=== PATIENT | female | born 1985 | race Caucasian/White ===

== ENCOUNTER → 2016-09-28 | Outpatient (CLI) | payer BC, SELFPAY | END | disposition disaster alternative care site (69) | LOC: GRAD 13:00 | DX: R10.2 Pelvic and perineal pain (principal); R10.9 Unspecified abdominal pain ==

== ENCOUNTER 2016-11-08 06:00 | Emergency (ER) | payer BC, SELFPAY ==
--- NOTE | ~2016-11-08 | ER ---
PATIENT'S NAME: CHRISTOPHER HANCOCK [facility] AGE: 31 Y [address] ROOM: [place] [address] LOCATION: [facility] ADMIT DATE: 11/08/2016 ER/Outpatient Report DISCHARGE DATE: FAMILY PHYSICIAN: Gloria Tavarez MD ATTENDING PHYSICIAN: Srinath Le TIME OF ARRIVAL: 0600 hours. TIME OF EVALUATION: 0610 hours. CHIEF COMPLAINT: Fever. HISTORY OF PRESENT ILLNESS: The patient is a 31-year-old female, who presents to the emergency department today with a chief complaint of fever, nasal congestion, drainage that started about 1 day prior to arrival. She woke up with some shortness of breath this morning. Does report some chest pain. It is in her chest, it is sharp, it is worse with deep inspiration. Reports a nonproductive cough. She does have some nausea. No vomiting. The patient is currently 10 weeks . She had a fever of 102 at home and chills; with one miscarriage. PAST MEDICAL HISTORY: None. PAST SURGICAL HISTORY: Right shoulder, elbow, cholecystectomy. SOCIAL HISTORY: The patient denies any tobacco, alcohol, or illicit drug use. ALLERGIES: PENICILLIN AND AZITHROMYCIN. MEDICATIONS: vitamins. PRIMARY CARE DOCTOR: None. RENEWABLE ENERGY CONSULTANT: As stated. PATIENT'S NAME: CHRISTOPHER [facility]ANC[facility] AGE: 31 Y [address] ROOM: [place] [address] LOCATION: [facility] ADMIT DATE: 11/08/2016 ER/Outpatient Report DISCHARGE DATE: FAMILY PHYSICIAN: Gloria Tavarez MD ATTENDING PHYSICIAN: Srinath Le REVIEW OF SYSTEMS: All systems are reviewed by myself and are negative with the exception of those discussed in HPI and past medical history. PHYSICAL EXAMINATION: VITAL SIGNS: Weight 104 kg, blood pressure 142/71, pulse 85, respiratory rate 20, temperature 98.8, oxygen saturation 100% on room air. GENERAL: The patient is a 31-year-old female, who appears stated age, in no acute distress. HEENT: Head: Normocephalic, atraumatic. Pupils are equal, round, and reactive to light. Mucous membranes are moist. NECK: Supple. There is no nuchal rigidity. CARDIOVASCULAR: Regular rate and rhythm. No murmurs, rubs, or gallops. LUNGS: Clear to auscultation bilaterally. No wheezes, rales, or rhonchi. ABDOMEN: Soft, nontender, nondistended. No rebound, rigidity, or guarding. MUSCULOSKELETAL: The patient moves all 4 extremities. SKIN: Warm and dry. There are no rashes or lesions noted. LABORATORY DATA AND X-RAYS: EKG is obtained, is interpreted by myself at 0615 shows sinus rhythm with a rate of 70, normal axis, normal interval. No ST elevation, ST depression, or T-wave inversions. Chest x-ray shows interstitial opacities. CBC: White blood cell count 12.6, otherwise normal. CMP is normal. D-dimer is less than 0.19. LFTs are normal. IMPRESSION: 1. Community-acquired pneumonia. 2. Intrauterine . 3. Initial visit. EMERGENCY DEPARTMENT COURSE: The patient was brought back to the examination room. Seen and evaluated by myself. IV is established. The patient is given a liter of normal saline, 4 mg of Zofran with a repeat dose, 1 g of Tylenol as well as 2 g of Rocephin IV. Bedside ultrasound is performed by myself. It does reveal an intrauterine with a heart rate of 167, gestational sac, and crown-rump length measures 9 weeks, 0 days. The patient is given DuoNeb breathing treatment. The patient does feel improved at this time. I have discussed results of the workup with the patient. I have written a prescription for Omnicef and albuterol for home. I have discussed ikofho-yw-mgrb instructions including worsening symptoms or any other concerns to return to the emergency department as soon as possible. The patient is agreeable without further PATIENT'S NAME: CHRISTOPHER [facility]ANCOCK [facility] AGE: 31 Y [address] ROOM: [place] [address] LOCATION: [facility] ADMIT DATE: 11/08/2016 ER/Outpatient Report DISCHARGE DATE: FAMILY PHYSICIAN: Gloria Tavarez MD ATTENDING PHYSICIAN: Srinath Le questions at this time. DISPOSITION: The patient is discharged home in good condition. DO EDNA CRUZ/modl /[id number] d: 11/08/16 0826 t: 11/09/16 1104, OUTPATIENT REPORT
[2016-11-08 06:35] LABS: BASOPHIL # 0.1 K/uL (0.0-0.2); BASOPHIL % 0.5 %; EOSINOPHIL # 0.1 K/uL (0.0-0.5); EOSINOPHIL % 1.1 %; HEMATOCRIT 37.3 % (33.0-46.0); HEMOGLOBIN 12.8 g/dL (11.0-15.0); IMMATURE GRANULOCYTE # 0.1 K/uL (0.0-0.3); IMMATURE GRANULOCYTE % 0.8 %; LYMPHOCYTE # 1.7 K/uL (0.8-4.0); LYMPHOCYTE % 13.7 %; MCHC 34.3 gm/dL (32.0-36.5); MCV 90.3 fl (83.0-98.0); MONOCYTE # 0.8 K/uL (0.0-1.0); MONOCYTE % 6.1 %; MPV 9.9 fl (9.4-12.4); NEUTROPHIL # (ANC) 9.8 K/uL (1.8-7.8); NEUTROPHIL % 77.8 %; NRBC % 0 /100WBC (0-0.00); PLATELET COUNT 245 K/uL (150-450); RBC 4.13 M/uL (3.50-5.50); RDW-CV 12.1 % (11.9-14.6); WBC 12.6 K/uL (4.0-11.0)
[2016-11-08 06:53] LABS: ALBUMIN 3.3 gm/dL (3.5-5.0); ALK PHOS 86 IU/L (33-138); ALT 29 IU/L (12-78); ANION GAP 14.7 (10.0-19.0); AST 18 IU/L (10-40); BLOOD UREA NITROGEN 6 mg/dL (6-24); CALCIUM 8.6 mg/dL (8.5-10.5); CHLORIDE 106 mMol/L (96-110); CO2 23 mMol/L (22-32); CREATININE 0.6 mg/dL (0.5-1.1); ESTIMATED GFR (MDRD EQUATION) > 60; POTASSIUM 3.7 mMol/L (3.7-5.1); SODIUM 140 mMol/L (135-145); TOTAL BILIRUBIN 0.5 mg/dL (0.0-1.5); TOTAL PROTEIN 6.8 g/dL (6.0-8.4)
== END 2016-11-08 08:01 | disposition disaster alternative care site (69) ==
LOC: GMED 06:00
PROVIDERS: Emergency Medicine
DX: O99.511 Diseases of the respiratory system complicating pregnancy, first trimester (principal); J18.9 Pneumonia, unspecified organism; Z3A.10 10 weeks gestation of pregnancy; Z88.0 Allergy status to penicillin; Z88.1 Allergy status to other antibiotic agents; Z98.890 Other specified postprocedural states; Z90.49 Acquired absence of other specified parts of digestive tract
CPT/HCPCS: J0696; J2405; J7030

== ENCOUNTER 2016-12-09 13:52 | Emergency (ER) | payer BC, SELFPAY ==
--- NOTE | ~2016-12-09 | ER ---
PATIENT'S NAME: CHRISTOPHER HANCOCK [facility] AGE: 31 Y [address] ROOM: [place] [address] LOCATION: [facility] ADMIT DATE: 12/09/2016 ER/Outpatient Report DISCHARGE DATE: 12/09/2016 FAMILY PHYSICIAN: PHYSICIAN, NO ATTENDING PHYSICIAN: Paola Le Time of Arrival: 1355 hours. Time of Evaluation: 1355 hours. CHIEF COMPLAINT: Vaginal bleeding. HISTORY OF PRESENT ILLNESS: The patient states approximately 15 minutes prior to arrival, she was lying down at home, felt a pop, and went to the bathroom, had sudden gush of bright red blood from the vaginal area. She has had cramping in the lower abdominal region. She is approximately 13-1/2 half weeks' . She has not had any clots. She has not passed any tissue. She states that she has been having problems with migraine headaches since she became . Headache today was quite extensive. She was trying to type at work, headache got worse, and so she went home to lay down and rest. States the headache is from the top of her head to the back. It is similar to the migraine headaches that she has had in the past. It is just not improving with medications. She states she sees Dr. Tavarez for [facility] care in [place]. Dr. Tavarez did order some Fioricet for her, which she did take last night, but it did not really help with the headache. She states her last menstrual period was on 09/04/2016. She has seen Dr. Tavarez and has an estimated due date of 06/11/2017. She is a 6; para 3; AB 2, one was an elected and one was a miscarriage. ALLERGIES: Z-QUAN, PENICILLIN. MEDICATIONS: On her chart and reviewed by me. PAST MEDICAL HISTORY: Migraine headaches, recurrent UTIs, pneumonia one month ago. PAST SURGICAL HISTORY: Cholecystectomy, shoulder surgery, elbow surgery. SOCIAL HISTORY: She denies use of tobacco, drugs, or alcohol. PATIENT'S NAME: CHRISTOPHER [facility]ANCOCK [facility] AGE: 31 Y [address] ROOM: [place] [address] LOCATION: ED ADMIT DATE: 12/09/2016 ER/Outpatient Report DISCHARGE DATE: 12/09/2016 FAMILY PHYSICIAN: PHYSICIAN, NO ATTENDING PHYSICIAN: Paola Le REVIEW OF SYSTEMS: All negative other than those mentioned in the HPI. PHYSICAL EXAMINATION: VITAL SIGNS: She weighs 102.2 kg, blood pressure is 143/86, pulse of 116, respirations 20, temperature of 99.1 tympanic, O2 saturation is 97% on room air. GENERAL: She is awake, alert, and oriented x4. SKIN: [place], warm, and dry. RESPIRATIONS: Even and nonlabored. Lung sounds are clear throughout. HEART: Regular rate and rhythm. EMERGENCY DEPARTMENT COURSE: Pelvic exam was completed. There is a moderate amount of blood in the vaginal vault. It was wicked away. Good visualization of the cervix was obtained and appears closed. No tissue noted at the cervical os. Does have continued trickling of bleeding at that site. The patient tolerated the procedure well. IV was started. Fluids of normal saline were run at a wide-open rate. The patient was given Compazine 10 mg IV and Benadryl 50 mg IV. LABORATORY DATA AND X-RAYS: Lab work was completed. CBC shows a white count 11.9, hemoglobin is 12.6 with hematocrit of 35.6. Chem panel is within normal limits. Her serum HCG is 27,098. Cath UA was obtained during the pelvic exam. It does show 5-10 white blood cells with few bacteria. Ultrasound was completed, reports the patient is 13 weeks and 4 days. Cervix does appear closed, heart rate is 140, placenta is okay. The patient states her blood type is O positive, and it is documented in her old charts. IMPRESSION: Threatened miscarriage. PLAN: Home, rest. Talked to her about doing complete bed rest. No lifting. Only getting up to go to the bathroom. I did discuss with her in detail about nothing in the vaginal vault. No use of tampons. No sexual intercourse. She is to continue to drink plenty of fluids. She states she has an appointment to see Dr. Tavarez tomorrow at 2:30. I encouraged her to call the office and let him know that she was here today and definitely needs to keep that appointment if not be seen sooner. She and her fiancee verbalized understanding. KAYLEY AVILA APRN FOR [facility] [employer] PATIENT'S NAME: CHRISTOPHER HANCOCK [facility] AGE: 31 Y [address] ROOM: [place] [address] LOCATION: ED ADMIT DATE: 12/09/2016 ER/Outpatient Report DISCHARGE DATE: 12/09/2016 FAMILY PHYSICIAN: MORA WAGNER ATTENDING PHYSICIAN: Paola Le/mingo /[id number] d: 12/10/16 0137 t: 12/14/16 1239, OUTPATIENT REPORT
[2016-12-09 14:26] LABS: BASOPHIL % 0.3 %; EOSINOPHIL # 0.1 K/uL (0.0-0.5); EOSINOPHIL % 0.6 %; HEMATOCRIT 35.6 % (33.0-46.0); HEMOGLOBIN 12.6 g/dL (11.0-15.0); IMMATURE GRANULOCYTE # 0.3 K/uL (0.0-0.3); IMMATURE GRANULOCYTE % 2.1 %; LYMPHOCYTE # 1.4 K/uL (0.8-4.0); LYMPHOCYTE % 11.8 %; MCH 31.7 pg (27.0-34.0); MCHC 35.4 gm/dL (32.0-36.5); MCV 89.4 fl (83.0-98.0); MONOCYTE # 0.7 K/uL (0.0-1.0); NEUTROPHIL # (ANC) 9.4 K/uL (1.8-7.8); NEUTROPHIL % 79.2 %; NRBC % 0 /100WBC (0-0.00); PLATELET COUNT 256 K/uL (150-450); RBC 3.98 M/uL (3.50-5.50); RDW-CV 12.1 % (11.9-14.6); WBC 11.9 K/uL (4.0-11.0)
[2016-12-09 14:37] LABS: INR - (THERAPEUTIC) 0.92 (0.92-1.07); PROTIME 9.6 SECONDS (9.8-11.4); PTT 28 SECONDS (25-32)
[2016-12-09 14:38] LABS: BILIRUBIN URINE NEGATIVE (NEGATIVE); BLOOD URINE 250 /UL (NEGATIVE); COLOR URINE YELLOW (YELLOW); GLUCOSE URINE NEGATIVE (NEGATIVE); KETONE URINE NEGATIVE (NEGATIVE); LEUKOCYTES URINE 25 /UL (NEGATIVE); NITRITE URINE NEGATIVE (NEGATIVE); PH URINE 6.5 (4.0-8.0); PROTEIN URINE NEGATIVE (NEGATIVE); SPEC GRAVITY URINE 1.015 (1.003-1.035); TURBIDITY URINE CLEAR (CLEAR); UROBILINOGEN URINE NORMAL (NORMAL)
[2016-12-09 14:51] LABS: ALBUMIN 3.2 gm/dL (3.5-5.0); ALK PHOS 81 IU/L (33-138); ALT 23 IU/L (12-78); ANION GAP 11.6 (10.0-19.0); AST 20 IU/L (10-40); BLOOD UREA NITROGEN 6 mg/dL (6-24); CALCIUM 8.3 mg/dL (8.5-10.5); CHLORIDE 108 mMol/L (96-110); CO2 22 mMol/L (22-32); CREATININE 0.5 mg/dL (0.5-1.1); ESTIMATED GFR (MDRD EQUATION) > 60; POTASSIUM 3.6 mMol/L (3.7-5.1); SODIUM 138 mMol/L (135-145); TOTAL PROTEIN 6.9 g/dL (6.0-8.4)
[2016-12-09 14:51] LABS: RBC URINE 20-50 #/HPF (NEGATIVE)
[2016-12-09 14:52] LABS: TOTAL BILIRUBIN 0.2 mg/dL (0.0-1.5)
[2016-12-09 14:52] LABS: BACTERIA URINE FEW (NEGATIVE)
== END 2016-12-09 15:50 | disposition disaster alternative care site (69) ==
LOC: GMED 13:52
PROVIDERS: Nurse Practitioner Family
DX: O20.0 Threatened abortion (principal); O99.351 Diseases of the nervous system complicating pregnancy, first trimester; G43.909 Migraine, unspecified, not intractable, without status migrainosus; Z3A.13 13 weeks gestation of pregnancy; Z88.0 Allergy status to penicillin; Z88.8 Allergy status to other drugs, medicaments and biological substances; Z90.49 Acquired absence of other specified parts of digestive tract
CPT/HCPCS: J0780; J1200; J7030